=== PATIENT | female | born 1985 | race Caucasian/White ===

== ENCOUNTER 2019-10-15 21:14 | Emergency (ER) | payer MEDICAID ==
[~2019-10-15] VITALS: Ht 167.6 cm; Wt 122.3 kg
[2019-10-15 21:21] VITALS: BP 149/101
[2019-10-15] MEDS ORDERED: IBUP-1984 PO (22:41)
== END 2019-10-15 23:30 | disposition home or self-care (01) ==
LOC: ER 21:15
DX: M79.644 Pain in right finger(s) (principal); Z88.1 Allergy status to other antibiotic agents; Z91.018 Allergy to other foods; Z79.899 Other long term (current) drug therapy; W01.198A Fall on same level from slipping, tripping and stumbling with subsequent striking against other object, initial encounter; Y93.89 Activity, other specified; Y92.89 Other specified places as the place of occurrence of the external cause; Y99.8 Other external cause status
CPT/HCPCS: 29125; 73130; 99283

== ENCOUNTER 2020-10-22 18:31 | Emergency (ER) | payer MEDICAID ==
[~2020-10-22] VITALS: Ht 167.6 cm; Wt 135.5 kg
[2020-10-22] MEDS ORDERED: ibuprofen 200mg tablet PO ONE (19:25)
[2020-10-22] MEDS ORDERED: IBUP-1985 PO (19:37)
[2020-10-22 19:46] VITALS: BP 145/80
== END 2020-10-22 19:49 | disposition home or self-care (01) ==
LOC: ER 18:32
DX: M25.531 Pain in right wrist (principal); M25.511 Pain in right shoulder; M79.601 Pain in right arm; J45.909 Unspecified asthma, uncomplicated; F17.200 Nicotine dependence, unspecified, uncomplicated; Z88.1 Allergy status to other antibiotic agents; Z88.8 Allergy status to other drugs, medicaments and biological substances; Z79.899 Other long term (current) drug therapy; W00.0XXA Fall on same level due to ice and snow, initial encounter; Y93.01 Activity, walking, marching and hiking; Y92.89 Other specified places as the place of occurrence of the external cause; Y99.8 Other external cause status
CPT/HCPCS: 29125; 73030; 73090; 73110; 99284

== ENCOUNTER 2024-11-09 01:50 | Emergency (ER) | payer MEDICAID ==
[~2024-11-09] VITALS: Ht 165.1 cm; Wt 84.8 kg
[~2024-11-09 01:50] MED LIST: IBUP-1985 PO
[2024-11-09 01:52] VITALS: BP 157/81; PULSE 95; RESP 18; O2SAT 100
[2024-11-09 03:16] VITALS: TEMP 98.1
[2024-11-09] MEDS: ibuprofen tablet 400 MG TABLET PO ONE (03:35)
[2024-11-09] MEDS: acetaminophen 325mg tablet PO ONE (03:35)
== END 2024-11-09 03:41 | disposition home or self-care (01) ==
LOC: ER 01:51
DX: M79.641 Pain in right hand (principal); J45.909 Unspecified asthma, uncomplicated; Z88.1 Allergy status to other antibiotic agents; Z91.018 Allergy to other foods; W22.09XA Striking against other stationary object, initial encounter; Y93.89 Activity, other specified; Y92.89 Other specified places as the place of occurrence of the external cause; Y99.8 Other external cause status
CPT/HCPCS: 73130; 99283; A6449